=== PATIENT | male | born 1995 | race Caucasian/White ===

== ENCOUNTER 2022-04-17 09:33 | Emergency (ER) | payer SELFPAY ==
[~2022-04-17] VITALS: Ht 188 cm; Wt 86.4 kg
[2022-04-17 10:34] VITALS: BP 143/100
[2022-04-17] MEDS: proparacaine 0.5% ophthalmic drops 15ml EACHEYE ONE (11:37)
[2022-04-17] MEDS ORDERED: ERYT1OIN6 RIGHTEYE (11:52)
== END 2022-04-17 12:10 | disposition home or self-care (01) ==
LOC: ER 09:33
DX: H10.89 Other conjunctivitis (principal); Z88.0 Allergy status to penicillin; Z88.5 Allergy status to narcotic agent; Z79.899 Other long term (current) drug therapy
CPT/HCPCS: 99283